=== PATIENT | female | born 1970 | race Two or more races ===

== ENCOUNTER 2024-05-24 10:00 | Emergency (ER) | payer OTHER ==
[~2024-05-24] VITALS: Ht 152.4 cm; Wt 55.8 kg
[2024-05-24] MEDS ORDERED: KETOROLAC TROMETHAMINE 30 MG VIAL ONE (10:57)
[2024-05-24] MEDS ORDERED: KETOROLAC TROMETHAMINE 30 MG VIAL IM ONE (11:00)
== END 2024-05-24 11:05 | disposition home or self-care (01) ==
LOC: ER 10:01
DX: G56.03 Carpal tunnel syndrome, bilateral upper limbs (principal)